=== PATIENT | female | born 1970 | race Caucasian/White ===

== ENCOUNTER 2020-05-04 23:04 | Emergency (ER) | payer OTHER ==
[~2020-05-04] VITALS: Ht 157.5 cm; Wt 61.4 kg
[2020-05-05 00:23] VITALS: BP 144/86
[2020-05-05] MEDS ORDERED: CEPHALEXIN MONOHYDRATE 500 MG CAPSULE PO ONE (00:45)
== END 2020-05-05 00:51 | disposition home or self-care (01) ==
LOC: EMS 23:04
DX: N76.0 Acute vaginitis (principal); F17.210 Nicotine dependence, cigarettes, uncomplicated; I10 Essential (primary) hypertension; E05.90 Thyrotoxicosis, unspecified without thyrotoxic crisis or storm
CPT/HCPCS: 99406

== ENCOUNTER 2021-03-18 10:22 | Emergency (ER) | payer OTHER ==
[~2021-03-18] VITALS: Ht 157.5 cm; Wt 61.4 kg
[2021-03-18 10:30] VITALS: BP 114/89
== END 2021-03-18 12:40 | disposition home or self-care (01) ==
LOC: EMS 10:26
DX: S83.92XA Sprain of unspecified site of left knee, initial encounter (principal); W19.XXXA Unspecified fall, initial encounter; Y93.89 Activity, other specified; Y92.89 Other specified places as the place of occurrence of the external cause; Y99.8 Other external cause status
CPT/HCPCS: 29505; 99283

== ENCOUNTER 2022-04-04 01:34 | Emergency (ER) | payer OTHER ==
[~2022-04-04] VITALS: Ht 157.5 cm; Wt 56.8 kg
[2022-04-04] MEDS ORDERED: BUPIVACAINE HCL/PF 0.25% 10 ML VIAL ID ONE (02:30)
[2022-04-04] MEDS ORDERED: LIDOCAINE 1% 10 ML VIAL IM ONE (02:30)
[2022-04-04 04:00] VITALS: BP 160/95
== END 2022-04-04 04:17 | disposition home or self-care (01) ==
LOC: EMS 01:35
DX: S63.284A Dislocation of proximal interphalangeal joint of right ring finger, initial encounter (principal); F17.210 Nicotine dependence, cigarettes, uncomplicated; F12.90 Cannabis use, unspecified, uncomplicated; Z98.890 Other specified postprocedural states; W19.XXXA Unspecified fall, initial encounter; Y93.89 Activity, other specified; Y92.89 Other specified places as the place of occurrence of the external cause; Y99.8 Other external cause status
CPT/HCPCS: 99284; 26770; 73130; 73140; J3490 ×2

== ENCOUNTER 2023-02-04 16:19 | Emergency (ER) | payer OTHER ==
[~2023-02-04] VITALS: Ht 157.5 cm; Wt 54.5 kg
[2023-02-04 16:25] VITALS: TEMP 98.5
[2023-02-04] MEDS ORDERED: IBUPROFEN 600 MG TABLET PO ONE (18:30)
[2023-02-04 19:18] VITALS: BP 137/78; PULSE 101; RESP 18
[2023-02-04] MEDS ORDERED: IBUP-1492 PO (19:24)
== END 2023-02-04 21:17 | disposition home or self-care (01) ==
LOC: EMS 16:22
DX: S42.022A Displaced fracture of shaft of left clavicle, initial encounter for closed fracture (principal); E05.90 Thyrotoxicosis, unspecified without thyrotoxic crisis or storm; F17.210 Nicotine dependence, cigarettes, uncomplicated; F12.90 Cannabis use, unspecified, uncomplicated; Z98.890 Other specified postprocedural states; V19.9XXA Pedal cyclist (driver) (passenger) injured in unspecified traffic accident, initial encounter; Y93.89 Activity, other specified; Y92.89 Other specified places as the place of occurrence of the external cause; Y99.8 Other external cause status
CPT/HCPCS: 99283